=== PATIENT | male | born 1985 | race African-American/Black ===

== ENCOUNTER 2020-08-22 14:42 | Emergency (ER) | payer SELFPAY ==
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
--- NOTE | 2020-08-22 15:05 | PC.NURSE ---
PT REFUSING BLOOD DRAW AT THIS TIME. RN NOTIFIED.
[2020-08-22 15:08] VITALS: BP 142/88; PULSE 86; RESP 17; TEMP 36.7; O2SAT 97
--- NOTE | 2020-08-22 15:12 | PC.NURSE ---
pt refusing to participate in assessment asking for phone, allowed to make call on public phone in ED PT ASKED FOR SECURITY TO SPEAK WITH HIM, THEY ARE NOW AT BEDSIDE
--- NOTE | 2020-08-22 15:30 | PC.NURSE ---
pt continued to refuse offers of help from staff. pt to be discharged from ED per Dr mirza. pt asked again to let staff asses him, continued to refuse. Call placed to Cesar CASILLAS to assist in discharge from ED.
--- NOTE | 2020-08-22 15:31 | PC.NURSE ---
Cesar CASILLAS called due to patient refusing all medical treatment and to leave the ED at this time. garment liner aware of situation
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
--- NOTE | 2020-08-22 16:09 | PC.NURSE ---
RECEIVED CALL FROM PROBABLE EMPLOYER, ANGELIKA BARRON [phone] STATED THAT THE NAME WE HAD FOR PT WAS INCORRECT SUPPOSED NAME MARSHALL JIMENEZ. WHEN IN CUSTODY OF PD AND BEING ESCORTED FROM PREMISES, PT SAID, IM SUICIDAL PD CONTINUED TO [facility] PT FROM ED
== END 2020-08-22 15:55 ==
LOC: ANHED 15:36
PROVIDERS: Emergency Provider Emergency Medicine
DX: F22 Delusional disorders (principal)
CPT/HCPCS: 99281